=== PATIENT | female | born 1965 | race Caucasian/White ===

== ENCOUNTER 2020-11-06 02:13 | Day surgery (SDC) | payer BC, SELFPAY ==
[2020-10-29 14:41] VITALS: BMI 32.4
[2020-11-06 11:50] VITALS: BP 137/61; PULSE 86; RESP 20; TEMP 36.3; O2SAT 98; BMI 38.2
[2020-11-06] MEDS: LACTATED RINGERS 1,000 ML 150 ML IV CONT (11:56)
--- NOTE | 2020-11-06 12:11 | WPDANESEPPF ---
Anes - Initial Pre Proc Eval Procedure: Operation Date: 11/06/20 12:30 Proposed Procedures p Esophagogastroduodenoscopy - Gerson Lala MD Date/Time: 11/06/20 12:11 Surgeon: Gerson Lala MD Pre Op Diagnosis: GERD Patient Data Age: 55 Gender: F Height: 1.6 m Weight: 97.9 kg Last Vital Signs Temp 97.3 F L 11/06/20 11:50 Pulse 86 11/06/20 11:50 Resp 20 11/06/20 11:50 BP 137/61 11/06/20 11:50 Pulse Ox 98 11/06/20 11:50 Allergies Allergy/AdvReac Type Severity Reaction Status Date / Time fentanyl Allergy Severe Itching Verified 11/06/20 11:48 hydrocodone Allergy Severe ITCHING Verified 11/06/20 11:48 ibuprofen Allergy Severe GI BLEED Verified 11/06/20 11:48 levofloxacin Allergy Severe Muscle Verified 11/06/20 11:48 Spasms meloxicam Allergy Severe EDEMA Verified 11/06/20 11:48 prednisone Allergy Severe RASH, Verified 11/06/20 11:48 SWELLING NSAIDS (Non-Steroidal AdvReac Severe GI BLEED Verified 11/06/20 11:48 Anti-Inflamma Home Medications Medication Instructions Recorded Confirmed Type atorvastatin 10 mg tablet 10 mg PO DAILY 10/11/20 10/29/20 History methocarbamol 500 mg tablet 500 mg PO QHS PRN 10/11/20 10/29/20 History metoprolol succinate 50 mg 50 mg PO DAILY 10/11/20 10/29/20 History tablet,extended release 24 hr omeprazole 40 mg capsule,delayed 40 mg PO BID #60 cap 10/11/20 10/29/20 Rx release sertraline 50 mg tablet 50 mg PO DAILY 10/11/20 10/29/20 History zolpidem 10 mg tablet 10 mg PO QHS PRN 10/11/20 10/29/20 History Adults Multivitamin 1 tab-cap PO DAILY 10/29/20 10/29/20 History cholecalciferol (vitamin D3) 5,000 unit PO DAILY 10/29/20 10/29/20 History [Vitamin D3] estradiol 1 mg PO DAILY 10/29/20 10/29/20 History folic acid 0.8 mg PO DAILY 10/29/20 10/29/20 History garlic [garlic oil] 500 mg PO DAILY 10/29/20 10/29/20 History omega 9-[id number]-[id number]-fish oil [Fish Oil] 1 cap PO DAILY 10/29/20 10/29/20 History vitamin B complex [Super B Complex] 1 cap PO DAILY 10/29/20 10/29/20 History Patient hx anesthesia problems: none Family hx anesthesia problems: none PMFSH Past Medical History Medical History (Updated 11/06/20 @ 12:12 by Anderson Baker MD) Anxiety Gastroesophageal reflux disease Hyperlipidemia Hypertension Migraines Family History Family History (Updated 10/11/20 @ 14:24 by Kori Gipson MA) Other Asthma Depression Family history of arthritis Heart disease Hypertension Thyroid disorder Social History Social History (Updated 10/11/20 @ 14:25 by Kori Gipson MA) Smoking packs per day: 1 Smoking cigarettes per day: 20.0 Years smoked: 25 Smoking pack-years: 25.00 Smoking status: Former smoker Tobacco type: cigarettes Additional smoking assessment comments: VAPES OCC. NOW Alcohol intake: current Drinks per week: 2 Alcohol use details: Wine Substance use: never Substance use type: does not use Living arrangements: with family Gender identity (if verbalized by the patient): Female Spiritual care concerns: No Anes - Eval Final PreProcedure Day of Procedure 11/06/20 12:11 Patient weight: obese Heart: regular rate and rhythm Lungs: clear to auscultation Airway: Mallampati scale class II Neurological: alert and oriented Last oral intake: >/= 8 hours ASA classification: III Emergent: no Anesthetic plan: proceed Anesthesia type and monitoring: general GIVS and standard monitoring Informed Consent: The patient's anesthetic plan and its attendant risks and benefits were discussed with the patient/family/POA. Questions were solicited and answers provided to the satisfaction of the patient/family/POA.
--- NOTE | 2020-11-06 12:15 | WPDHPUPDATE1 ---
History and Physical Update Update Date/Time: 11/06/20 12:15 History and Physical has been reviewed, including an updated exam of the patient. There are NO changes in the patient's condition. Risks, benefits, and alternatives have been discussed and questions answered. Patient agrees to proceed with procedure.
[2020-11-06 12:54] VITALS: BP 109/67; PULSE 73; RESP 18; O2SAT 98
[2020-11-06 13:04] VITALS: BP 121/73; PULSE 69; RESP 12; O2SAT 99
[2020-11-06 13:14] VITALS: BP 127/68; PULSE 70; RESP 15; O2SAT 99
== END 2020-11-06 13:23 | disposition home or self-care (01) ==
PROVIDERS: PCP Family Medicine; Visit Provider Internal Medicine Gastroenterology
PROC: 0DJ08ZZ Inspection of Upper Intestinal Tract, Via Natural or Artificial Opening Endoscopic (ICD-10-PCS; CPT 43235; principal; 2020-11-06 12:30)
DX: K21.9 Gastro-esophageal reflux disease without esophagitis (principal); I10 Essential (primary) hypertension; E78.5 Hyperlipidemia, unspecified; F41.9 Anxiety disorder, unspecified; F17.290 Nicotine dependence, other tobacco product, uncomplicated; E66.9 Obesity, unspecified; Z68.38 Body mass index [BMI] 38.0-38.9, adult
CPT/HCPCS: 43235; J2001; J2704; J7120

== ENCOUNTER → 2020-11-16 14:50 | Outpatient (CLI) | payer BC, SELFPAY ==
--- NOTE | ~2020-11-16 | XR_ITS ---
XR foot LT min 3V DATE: 11/16/2020 15:01 INDICATION: Left foot fractures TECHNIQUE: 4 views COMPARISON: None FINDINGS: There is mild osteophyte is at the first metatarsophalangeal joint. Slight plantar calcaneal enthesopathy and minimal distal Achilles tendon calcification. There is a linear lucency at the lateral base of the fifth metatarsal bone, suggesting a small linear coronary intra-articular fracture No other fracture or dislocation, periosteal reaction or bone destruction is detected. IMPRESSION: Minimally displaced small intra-articular corner fracture at the lateral base of the fift h metatarsal bone Mild osteoarthritis at the first metatarsophalangeal joint Reviewed, dictated and finalized at location B. IMPRESSION: Minimally displaced small intra-articular corner fracture at the la teral base of the fifth metatarsal bone Mild osteoarthritis at the first metatarsophalangeal joint
== END ==
PROVIDERS: Visit Provider Physician Assistant
DX: S92.902A Unspecified fracture of left foot, initial encounter for closed fracture (principal); X58.XXXA Exposure to other specified factors, initial encounter; M19.072 Primary osteoarthritis, left ankle and foot
CPT/HCPCS: 73630

== ENCOUNTER → 2021-02-12 12:17 | Outpatient (CLI) | payer BC, SELFPAY ==
--- NOTE | ~2021-02-12 | MM_ITS ---
EXAMINATION: MM scrn rhianna implant BI w murphy HISTORY: Screening mammogram TECHNIQUE: Craniocaudal and mediolateral oblique 3-D tomosynthesis images with implant displacement a nd synthetic 2-D images were generated. Craniocaudal and mediolateral oblique views of the breasts wi thout implant displacement were obtained using full field digital mammography. CAD analysis was submi tted and interpreted. COMPARISON: Comparison to multiple prior studies sequentially, with oldest reviewed study dated 07/2015. BREAST PARENCHYMAL COMPOSITION: There are scattered areas of fibroglandular density. FINDINGS: There is no evidence of suspicious mass, calcification, or architectural distortion to sugg est malignancy in either breast. There has been no suspicious interval change. IMPRESSION: 1. No mammographic evidence of malignancy. 2. Recommend routine screening mammography in one year. BI-RADS Category 1: Negative Reviewed, dictated and finalized at location A. [employer]
--- NOTE | ~2021-02-12 | DEXA_ITS ---
Bone Density Report Name: JOSE A RIVERA Age: 55 Sex: Female Ethnicity: White Date of : 1965 Indication: postmenopausal; screening for osteoporosis; asthma or emphysema; hysterectomy; Referring Provider: DEVI BINGHAM Study: Bone densitometry was performed. Exam Date: February 12, 2021 Accession number: [id number] Bone Density: Region BMD T-score Z-score Classification AP Spine (L1-L4) 1.191 1.3 2.5 Normal Femoral Neck (Left) 0.914 0.6 1.7 Normal Total Hip (Left) 1.181 2.0 2.8 Normal Femoral Neck (Right) 0.843 -0.1 1.1 Normal Total Hip (Right) 1.102 1.3 2.1 Normal Total Hip Mean 1.142 1.7 2.5 Normal World Health Organization criteria for BMD impression classify patients as: Normal (T-score at or above -1.0), Osteopenia (T-score between -1.0 and -2.5), or Osteoporosis (T-score at or below -2.5). 10-year Fracture Risk: FRAX not reported because: All T-scores for Spine Total, Hip Total, Femoral Neck at or above -1.0 Treated for osteoporosis Clinical Information Provided by Patient: Is being treated for osteoporosis Has used the following medications: HRT (i.e. estrogen/hormone therapy), Vitamin D Has the following medical conditions: Asthma or Emphysema, Hysterectomy Patient maximum height was 63.5 Menopause Age: 51 No regular weight bearing exercise Does not regularly consume dairy products Drinks caffeinated beverages Onset of menses at age 12 Number of children 2 Missed period for more than 6 months in a row Impression: The patient has normal bone mass. Discussion: It is important to ask patients whether they are taking their medications and to encourage continued and appropriate compliance with their osteoporosis therapies to reduce fracture risk. It is also important to review their risk factors and encourage appropriate calcium and vitamin D intakes, exercise, fall prevention and other lifestyle measures. Follow-Up: Consider a repeat BMD and Vertebral Fracture Assessment (VFA) exam in 2 years or sooner if medically necessary, to reassess this patient's status. Reported by: JUNE on 02/12/2021 12:55:00 PM. Reviewed, dictated and finalized at location AJeanmarie GUERRA
== END ==
PROVIDERS: PCP Family Medicine; Visit Provider Obstetrics & Gynecology
DX: Z12.31 Encounter for screening mammogram for malignant neoplasm of breast (principal); Z78.0 Asymptomatic menopausal state
CPT/HCPCS: 77063; 77067; 77080

== ENCOUNTER 2022-03-28 01:24 | Day surgery (SDC) | payer BC, SELFPAY ==
[2022-03-18 11:58] VITALS: BMI 39.8
[2022-03-28 09:39] LABS: Glucose Point of Care 92 mg/dl (65-105)
[2022-03-28 09:40] VITALS: BP 121/72; PULSE 88; RESP 16; TEMP 36.3; O2SAT 99
[2022-03-28] MEDS: LACTATED RINGERS 1,000 ML 150 ML IV CONT (09:43)
--- NOTE | 2022-03-28 10:03 | PM.HPGS ---
History of Present Illness History of Present Illness Consent: Risks, benefits, and alternatives have been discussed and questions answered. Patient agrees to proceed with procedure. Chief complaint: neoplasm screening Narrative: Ashley Centeno is a 56 year old female Presents for screening colonoscopy. Patient's current weight appetite and bowel movements are normal. Patient denies abdominal pain. She has had no bleeding. Family history is noncontributory. Patient has a past medical history of GE reflux which currently is felt to be stable. Well controlled with current regime. Review of Systems Review of Systems: Review of systems noncontributory. [facility] Past Medical History Medical History (Updated 03/28/22 @ 10:04 by Gerson Lala MD) Anxiety Gastroesophageal reflux disease Hyperlipidemia Hypertension Migraines Family History Family History (Updated 10/11/20 @ 14:24 by Kori Gipson MA) Other Asthma Depression Family history of arthritis Heart disease Hypertension Thyroid disorder Social History Social History (Updated 10/11/20 @ 14:25 by Kori Gipson MA) Smoking packs per day: 1 Smoking cigarettes per day: 20.0 Years smoked: 30 Smoking pack-years: 30.00 Smoking status: Former smoker Tobacco type: cigarettes Additional smoking assessment comments: VAPES OCC. NOW Alcohol intake: current Drinks per week: 2 Alcohol use details: Wine Substance use: never Substance use type: does not use Living arrangements: with family Gender identity (if verbalized by the patient): Female Spiritual care concerns: No Meds Home Medications and Allergies Home Medications Medication Instructions Recorded Confirmed Type methocarbamol 500 mg tablet 500 mg PO QHS PRN Spasms 10/11/20 03/28/22 History metoprolol succinate 50 mg 50 mg PO DAILY 10/11/20 03/28/22 History tablet,extended release 24 hr sertraline 50 mg tablet (Zoloft) 50 mg PO DAILY 10/11/20 03/28/22 History zolpidem 10 mg tablet 10 mg PO QHS PRN Insomnia 10/11/20 03/28/22 History estradiol 1 mg tablet 1 mg PO DAILY 10/29/20 03/28/22 History dulaglutide 1.5 mg/0.5 mL 1.5 mg (0.5 mL) subcut WEEKLY #2 mL 03/11/22 03/28/22 Rx subcutaneous pen injector ([facility]) atorvastatin 20 mg tablet 20 mg PO DAILY 03/18/22 03/28/22 History omeprazole 40 mg capsule,delayed 40 mg PO DAILY 03/18/22 03/28/22 History release Allergies Allergy/AdvReac Type Severity Reaction Status Date / Time fentanyl Allergy Severe Hives Verified 03/28/22 09:38 ibuprofen Allergy Severe GI BLEED Verified 03/28/22 09:38 levofloxacin Allergy Severe Muscle Verified 03/28/22 09:38 Spasms meloxicam Allergy Severe EDEMA Verified 03/28/22 09:38 prednisone Allergy Severe RASH, Verified 03/28/22 09:38 SWELLING hydrocodone Allergy Intermediate ITCHING Verified 03/28/22 09:38 NSAIDS (Non-Steroidal AdvReac Severe GI BLEED Verified 03/28/22 09:38 Anti-Inflamma Vital Signs Vital Signs - 24 hr 03/28/22 09:40 Temperature 97.3 F L Pulse Rate 88 Respiratory Rate 16 Blood Pressure 121/72 Pulse Oximetry 99 Oxygen Delivery Room Air Exam Narrative: Physical exam reveals patient to be alert. Vital signs stable. HEENT exam is unremarkable. Patient is anicteric. Lungs are clear to auscultation and percussion. Heart is without murmur or extra sounds. Abdomen bowel sounds present soft nontender with no organomegaly. Digital external rectal exam is normal. Assessment and Plan Assessment and plan (1) Encounter for screening colonoscopy: Code(s): Z12.11 - Encounter for screening for malignant neoplasm of colon Status: Acute Assessment and Plan: Patient presents for screening colonoscopy. She appears to be at average risk for colon polyps.
--- NOTE | 2022-03-28 10:18 | WPDANESEPPF ---
Anes - Initial Pre Proc Eval Procedure: Operation Date: 03/28/22 10:30 Proposed Procedures p Screening Colonoscopy - Gerson Lala MD Date/Time: 03/28/22 10:18 Surgeon: Gerson Lala MD Pre Op Diagnosis: neoplasm screening Patient Data Age: 56 Gender: F Height: 1.6 m Weight: 95.8 kg Last Vital Signs Temp 97.3 F L 03/28/22 09:40 Pulse 88 03/28/22 09:40 Resp 16 03/28/22 09:40 BP 121/72 03/28/22 09:40 Pulse Ox 99 03/28/22 09:40 O2 Del Method Room Air 03/28/22 09:40 Allergies Allergy/AdvReac Type Severity Reaction Status Date / Time fentanyl Allergy Severe Hives Verified 03/28/22 09:38 ibuprofen Allergy Severe GI BLEED Verified 03/28/22 09:38 levofloxacin Allergy Severe Muscle Verified 03/28/22 09:38 Spasms meloxicam Allergy Severe EDEMA Verified 03/28/22 09:38 prednisone Allergy Severe RASH, Verified 03/28/22 09:38 SWELLING hydrocodone Allergy Intermediate ITCHING Verified 03/28/22 09:38 NSAIDS (Non-Steroidal AdvReac Severe GI BLEED Verified 03/28/22 09:38 Anti-Inflamma Home Medications Medication Instructions Recorded Confirmed Type methocarbamol 500 mg tablet 500 mg PO QHS PRN Spasms 10/11/20 03/28/22 History metoprolol succinate 50 mg 50 mg PO DAILY 10/11/20 03/28/22 History tablet,extended release 24 hr sertraline 50 mg tablet (Zoloft) 50 mg PO DAILY 10/11/20 03/28/22 History zolpidem 10 mg tablet 10 mg PO QHS PRN Insomnia 10/11/20 03/28/22 History estradiol 1 mg tablet 1 mg PO DAILY 10/29/20 03/28/22 History dulaglutide 1.5 mg/0.5 mL 1.5 mg (0.5 mL) subcut WEEKLY #2 mL 03/11/22 03/28/22 Rx subcutaneous pen injector ([facility] [place]) atorvastatin 20 mg tablet 20 mg PO DAILY 03/18/22 03/28/22 History omeprazole 40 mg capsule,delayed 40 mg PO DAILY 01/31/23 02/10/23 History release Laboratory Tests 03/28/22 09:36 POC Capillary Glucose 92 mg/dl mg/dl (65-105) Patient hx anesthesia problems: none Family hx anesthesia problems: none Results Review: All pre-operative results and documents have been reviewed as part of the pre-operative evaluation. [facility] Past Medical History Medical History (Updated 03/28/22 @ 10:04 by Gerson Lala MD) Anxiety Gastroesophageal reflux disease Hyperlipidemia Hypertension Migraines Family History Family History (Updated 10/11/20 @ 14:24 by Kori Gipson MA) Other Asthma Depression Family history of arthritis Heart disease Hypertension Thyroid disorder Social History Social History (Updated 10/11/20 @ 14:25 by Kori Gipson MA) Smoking packs per day: 1 Smoking cigarettes per day: 20.0 Years smoked: 30 Smoking pack-years: 30.00 Smoking status: Former smoker Tobacco type: cigarettes Additional smoking assessment comments: VAPES OCC. NOW Alcohol intake: current Drinks per week: 2 Alcohol use details: Wine Substance use: never Substance use type: does not use Living arrangements: with family Gender identity (if verbalized by the patient): Female Spiritual care concerns: No Anes - Eval Final PreProcedure Day of Procedure 03/28/22 10:18 Patient weight: obese Heart: regular rate and rhythm Lungs: clear to auscultation Airway: Mallampati scale class II Neurological: alert and oriented Last oral intake: >/= 8 hours ASA classification: III Emergent: no Anesthetic plan: proceed Anesthesia type and monitoring: general GIVS and standard monitoring Results Review: All pre-operative results and documents have been reviewed as part of the pre-operative evaluation. Informed Consent: The patient's anesthetic plan and its attendant risks and benefits were discussed with the patient/family/POA. Questions were solicited and answers provided to the satisfaction of the patient/family/POA.
[2022-03-28 11:34] VITALS: BP 116/70; PULSE 78; RESP 17; O2SAT 100
[2022-03-28 11:44] VITALS: BP 124/77; PULSE 84; RESP 18; O2SAT 100
[2022-03-28 11:54] VITALS: BP 109/87; PULSE 86; RESP 18; O2SAT 100
== END 2022-03-28 11:58 | disposition home or self-care (01) ==
PROVIDERS: PCP Family Medicine; Visit Provider Internal Medicine Gastroenterology
PROC: 0DJD8ZZ Inspection of Lower Intestinal Tract, Via Natural or Artificial Opening Endoscopic (ICD-10-PCS; CPT 45378; principal; 2022-03-28 10:30)
DX: Z12.11 Encounter for screening for malignant neoplasm of colon (principal); K64.8 Other hemorrhoids; K57.30 Diverticulosis of large intestine without perforation or abscess without bleeding; I10 Essential (primary) hypertension; E78.5 Hyperlipidemia, unspecified; K21.9 Gastro-esophageal reflux disease without esophagitis; F41.9 Anxiety disorder, unspecified; F17.290 Nicotine dependence, other tobacco product, uncomplicated; E66.9 Obesity, unspecified; Z68.37 Body mass index [BMI] 37.0-37.9, adult; Z79.899 Other long term (current) drug therapy
CPT/HCPCS: 45378; 82948; J2704; J7120

== ENCOUNTER 2023-04-21 16:01 | Emergency (ER) | payer BC, SELFPAY ==
[2023-04-21 16:32] VITALS: BP 107/85; PULSE 91; RESP 16; TEMP 36.8; O2SAT 100
--- NOTE | 2023-04-21 16:43 | ED.GENADULT ---
HPI - General Adult General Chief complaint: Upper Respiratory Infection Stated complaint: congestion Source: patient, RN notes reviewed and old records reviewed Mode of arrival: ambulatory Limitations: no limitations History of Present Illness HPI narrative: 57-year-old female presents to [facility] with complaints of cough, sinus congestion, headache, sinus pain that started 10 days ago. Patient has been taking [id number] medications with no relief. Patient denies chest pain, dizziness, weakness, shortness of breath. Related Data Home Medications Medication Instructions Recorded Confirmed cholecalciferol (vitamin D3) 50 50 mcg PO DAILY 07/28/22 04/21/23 mcg (2,000 unit) capsule Allergies Allergy/AdvReac Type Severity Reaction Status Date / Time fentanyl Allergy Severe Hives Verified 04/21/23 16:37 ibuprofen Allergy Severe GI BLEED Verified 04/21/23 16:37 levofloxacin Allergy Severe Muscle Verified 04/21/23 16:37 Spasms meloxicam Allergy Severe EDEMA Verified 04/21/23 16:37 prednisone Allergy Severe RASH, Verified 04/21/23 16:37 SWELLING hydrocodone Allergy Intermediate ITCHING Verified 04/21/23 16:37 NSAIDS (Non-Steroidal AdvReac Severe GI BLEED Verified 04/21/23 16:37 Anti-Inflamma Review of Systems Constitutional: Constitutional: Reports no additional constitutional complaints, Denies body ache(s), Denies chills, Denies fatigue, Denies fever(s) and Reports headache(s) Eyes: Eyes: Reports no additional eye complaints and Denies blurry vision ENT: Reports system reviewed and no additional complaints, except as documented, Denies vertigo, Denies dizziness, Denies ear discharge, Denies otalgia, Reports facial pain, Reports headache(s), Reports nasal congestion, Reports nasal discharge, Reports sinus pain, Reports sinus pressure and Denies sore throat Cardiovascular: Cardiovascular: Reports no additional cardiovascular complaints, Denies chest pain, Denies chest pain at rest, Denies rapid heart rate and Denies dyspnea Respiratory: Respiratory: Reports no additional respiratory complaints, Reports chest congestion, Reports cough, Denies pain on inspiration, Denies pain with cough and Denies dyspnea Gastrointestinal: Gastrointestinal: Denies abdominal pain, Denies diarrhea, Denies nausea and Denies vomiting Integumentary/Breasts: Skin/Breast: Denies rash Neurologic: Reports system reviewed and no additional complaints, except as documented, Denies vertigo, Denies dizziness and Denies headache(s) Endocrine: Endocrine: Denies fatigue PMFSH Past Medical History Medical History Anxiety Essential (primary) hypertension Gastroesophageal reflux disease Hyperlipidemia Hypertension Insomnia Major depressive disorder, recurrent, moderate Migraines Obstructive sleep apnea (adult) (pediatric) Other intervertebral disc degeneration, lumbosacral region Type 2 diabetes mellitus without complications Family History Family History Other Asthma Depression Family history of arthritis Heart disease Hypertension Thyroid disorder Social History Social History Smoking packs per day: 1 Smoking cigarettes per day: 20.0 Years smoked: 30 Smoking pack-years: 30.00 Smoking status: Former smoker Tobacco type: cigarettes Additional smoking assessment comments: VAPES OCC. NOW Alcohol intake: current Drinks per week: 2 Alcohol use details: Wine Substance use: never Substance use type: does not use Lack of Transportation: YES Lack of Food: Never True Current Housing: I Have Housing Concerned About Future Housing: No Difficulty Paying Gas/Electric Bills: No Difficulty Paying for Meds: No Currently Unemployed: YES Education: Associate Degree Living arrangements: with family Occupation/Education:
== END 2023-04-21 17:00 | disposition home or self-care (01) ==
PROVIDERS: Emergency Provider Registered Nurse; PCP Family Medicine
DX: J01.90 Acute sinusitis, unspecified (principal); I10 Essential (primary) hypertension; K21.9 Gastro-esophageal reflux disease without esophagitis; E78.5 Hyperlipidemia, unspecified; E11.9 Type 2 diabetes mellitus without complications; F41.9 Anxiety disorder, unspecified
CPT/HCPCS: 99213; G0463

== ENCOUNTER 2023-07-24 13:09 | Outpatient (CLI) | payer BC, SELFPAY ==
--- NOTE | ~2023-07-24 | XR_ITS ---
Left Shoulder Technique: AP and scapular Y views were obtained. Clinical History: Pain Findings: No fracture or dislocation is seen. Osseous alignment is anatomic. The glenohumeral and acr omioclavicular joint spaces are preserved. Soft tissues are unremarkable. Impression: Unremarkable left shoulder radiographs. Reviewed, dictated and finalized at [facility]. Impression: Unremarkable left shoulder radiographs.
== END 2023-07-24 13:10 ==
LOC: MICIMG 13:10
PROVIDERS: PCP Family Medicine; Visit Provider Family Medicine
DX: M25.512 Pain in left shoulder (principal)
CPT/HCPCS: 73030

== ENCOUNTER 2023-08-13 14:26 | Outpatient (CLI) | payer BC, SELFPAY ==
--- NOTE | ~2023-08-13 | MR_ITS ---
EXAMINATION: MR shoulder LT wo con DATE: 08/13/2023 15:06 INDICATION: Left shoulder pain. TECHNIQUE: Magnetic resonance imaging (MRI) of the left shoulder was performed without intravenous co ntrast. Sequences included axial PD-weighted FS FSE, coronal oblique PD-weighted FS FSE and T2-weight ed FS FSE, and sagittal oblique T2-weighted FS FSE and T1-weighted FSE. COMPARISON: Left shoulder radiograph 07/24/23 FINDINGS: Coracoacromial arch: The acromion undersurface is curved in morphology (type II). There is mild acromioclavicular joint os teoarthritis. There is mild subacromial/subdeltoid bursitis. Rotator cuff: There is a bursal-sided tear of supraspinatus tendon measuring 11 mm anterior to posterior by 7 mm an terior to posterior by 60% tendon thickness. There is mild infraspinatus tendinopathy. Teres minor te ndon is normal. Subscapularis tendon is normal. The rotator cuff muscle bellies are normal. Biceps tendon and glenoid labrum: Biceps tendon is in bicipital groove. Intra-articular biceps tendon is normal. The glenoid labrum is normal. Fluid: There is no glenohumeral joint effusion. Bones/cartilage: Glenoid cartilage is normal. Humeral head cartilage is normal. IMPRESSION: 1. Bursal-sided, partial-thickness tear of supraspinatus tendon. 2. Mild acromioclavicular joint osteoarthritis. 3. Mild subacromial/subdeltoid bursitis. Reviewed, dictated and finalized at location A.
== END 2023-08-13 14:27 ==
LOC: MICIMG 14:27
PROVIDERS: PCP Family Medicine; Visit Provider Nurse Practitioner Family
DX: M25.512 Pain in left shoulder (principal)
CPT/HCPCS: 73221